=== PATIENT | female | born 1965 | race Caucasian/White ===

== ENCOUNTER 2017-03-21 15:53 | Emergency (ER) | payer OTHER | END 2017-03-21 19:39 | disposition home or self-care (01) | LOC: ER 15:53 | DX: J06.9 Acute upper respiratory infection, unspecified (principal); J02.9 Acute pharyngitis, unspecified; R52 Pain, unspecified; Z79.899 Other long term (current) drug therapy | CPT/HCPCS: 87070; 87400; 87880; 99282 ==